=== PATIENT | male | born 1960 | race Caucasian/White ===

== ENCOUNTER → 2019-06-09 14:35 | Outpatient (CLI) | payer BC, SELFPAY ==
--- NOTE | ~2019-06-09 | XR_ITS ---
XR finger 3rd RT min 2V DATE: 06/09/2019 15:02 INDICATION: Fracture of distal phalanx TECHNIQUE: 4 views of third digit COMPARISON: None FINDINGS: There is a transverse fracture of the tuft of the distal phalanx of the third digit without significant displacement or angulation. No other fracture or dislocation of the third digit. IMPRESSION: Transverse virtually nondisplaced fracture of the tuft of the distal phalanx Reviewed, dictated and finalized at location A. IMPRESSION: Transverse virtually nondisplaced fracture of the tuft of the dista l phalanx
== END ==
PROVIDERS: Visit Provider Plastic Surgery
DX: S62.635A Displaced fracture of distal phalanx of left ring finger, initial encounter for closed fracture (principal); X58.XXXA Exposure to other specified factors, initial encounter
CPT/HCPCS: 73140

== ENCOUNTER → 2019-10-20 11:18 | Outpatient (CLI) | payer BC, SELFPAY ==
--- NOTE | ~2019-10-20 | XR_ITS ---
EXAMINATION: XR chest 2V DATE: 10/20/2019 12:10 INDICATION: Cough TECHNIQUE: PA and lateral views of the chest are obtained. COMPARISON: 10/08/2013 FINDINGS: The lungs are free of acute opacities. There is no pleural effusion or pneumothorax. The ca rdiomediastinal silhouette is normal. There is moderate thoracic spondylosis. IMPRESSION: 1. No acute cardiopulmonary abnormality. Reviewed, dictated and finalized at location A.
== END ==
PROVIDERS: PCP Internal Medicine; Visit Provider Internal Medicine
DX: R05 Cough (principal)
CPT/HCPCS: 71046

== ENCOUNTER → 2020-02-09 11:06 | Outpatient (CLI) | payer BC, SELFPAY ==
--- NOTE | ~2020-02-09 | XR_ITS ---
XR wrist LT min 3V DATE: 02/09/2020 11:27 INDICATION: Left wrist and hand pain TECHNIQUE: 4 views of left wrist COMPARISON: None FINDINGS: No fracture or dislocation, periosteal reaction or bone destruction. Joint spaces are prese rved. No erosive change or chondrocalcinosis. IMPRESSION: Negative left wrist Reviewed, dictated and finalized at location A. SH VISITOR IMPRESSION: Negative left wrist
--- NOTE | ~2020-02-09 | XR_ITS ---
XR hand LT min 3V DATE: 02/09/2020 11:27 INDICATION: Left wrist and hand pain TECHNIQUE: 3 views COMPARISON: None FINDINGS: Occasional degenerative ossicles and mild narrowing at some of the interphalangeal joints c onsistent with mild osteoarthritis. No fracture or dislocation, periosteal reaction or bone destruction, erosive change or chondrocalcino sis. IMPRESSION: Mild osteoarthritis Reviewed, dictated and finalized at location A. PMENT LEAD IMPRESSION: Mild osteoarthritis
== END ==
PROVIDERS: PCP Internal Medicine; Visit Provider Internal Medicine
DX: M19.042 Primary osteoarthritis, left hand (principal)
CPT/HCPCS: 73110; 73130

== ENCOUNTER 2020-03-08 07:08 | Outpatient (CLI) | payer BC, SELFPAY ==
[2020-03-08 09:20] LABS: Cholesterol 124 mg/dL (0-200); HDL Direct 31 mg/dL; Triglycerides 204 mg/dL (<150)
[2020-03-08 09:33] LABS: Hemoglobin A1C 9.6 % (<5.7)
[2020-03-08 09:35] LABS: LDL Cholesterol Direct 55 mg/dL
[2020-03-08 09:54] LABS: Prostate Specific Antigen 0.3 ng/mL (< OR = 4.0)
[2020-03-08 10:28] LABS: Creatinine Urine 42.4 mg/dL
[2020-03-08 11:13] LABS: MALB Creatinine Ratio < 14.2 mg/g (0-30); Microalbumin Urine Random < 6.0 mg/L (0-16.7)
[2020-03-11 09:12] LABS: Testosterone Total 412 ng/dL (250-1100)
== END 2020-03-08 07:09 | disposition home or self-care (01) ==
PROVIDERS: PCP Internal Medicine; Visit Provider Internal Medicine
DX: E11.69 Type 2 diabetes mellitus with other specified complication (principal); E78.2 Mixed hyperlipidemia; Z79.899 Other long term (current) drug therapy; Z12.5 Encounter for screening for malignant neoplasm of prostate; E29.1 Testicular hypofunction
CPT/HCPCS: 36415; 80061; 82043; 83036; 84153; 84403; 84443; G0103

== ENCOUNTER 2020-06-15 16:09 | Emergency (ER) | payer BC, SELFPAY ==
--- NOTE | ~2020-06-15 | XR_ITS ---
XR chest 2V DATE: 06/15/2020 17:22 INDICATION: Cough for 1 day. Stents in 2015. TECHNIQUE: PA and lateral views COMPARISON: PA and lateral chest FINDINGS: Normal heart size. There is mild aortic unfolding. No hilar or mediastinal enlargement. N o pulmonary infiltrate or consolidation, pleural effusion or pulmonary vascular congestion or pneumot horax is detected. IMPRESSION: No active cardiopulmonary disease Reviewed, dictated and finalized at location A.
[2020-06-15 16:28] VITALS: BP 137/101; PULSE 67; RESP 28; TEMP 36.9; O2SAT 100
--- NOTE | 2020-06-15 16:39 | ECG_ITS ---
Measurements Intervals [place] Rate: 66 P: 35 OR: 194 QRS: 56 QRSD: 115 T: 44 QT: 401 QTc: 422 Interpretive Statements SINUS RHYTHM WITH SINUS ARRHYTHMIA INCOMPLETE RIGHT BUNDLE BRANCH BLOCK BASELINE ARTIFACT- AVR, V1-V4 BORDERLINE ECG Electronically Signed On 06-15-2020 17:31:45 CDT by Francisco Genao D.O.
[2020-06-15 16:51] LABS: Basophils Percent Auto 0.3 % (0.2-1.2); Eosinophils Percent Auto 0.1 % (0-4.4); Hemoglobin 14.9 g/dL (14.0-18.0); Immature Granulocyte Absolute 0.04 K/mm3 (0.00-0.031); Immature Granulocyte Percent A 0.4 % (0-0.5); Lymphocytes Absolute Auto 1.36 K/mm3 (0.9-3.2); Lymphocytes Percent Auto 12.5 % (18.3-44.2); Mean Corpuscular HGB Conc 33.9 g/dl (32-36); Mean Corpuscular Hemoglobin 30.3 pg (26-34); Mean Corpuscular Volume 89.6 fl (80-100); Mean Platelet Volume 9.2 fl (7.4-10.4); Monocytes Absolute Auto 0.3 K/mm3 (0.1-0.6); Monocytes Percent Auto 2.8 % (2.6-8.5); Neutrophils Absolute Auto 9.2 K/mm3 (1.3-6.7); Neutrophils Percent Auto 83.9 % (45.5-73.1); Platelet Count Result 199 k/mm3 (150-375); Red Blood Count 4.91 M/mm3 (4.6-6.20); Red Cell Distribution Width 12.6 % (11.5-14.5); White Blood Count 10.9 K/mm3 (4.5-10.0)
[2020-06-15 17:02] LABS: Add Urine Microscopic? YES; Appearance Urine Clear (Clear); Bilirubin Urine Negative (Negative); Blood Urine Negative (Negative); Color Urine Yellow (Yellow); Glucose Urine UA 3+ mg/dL (Negative); Ketones Urine Negative (Negative); Leukocyte Esterase Ur Negative LEU/UL (Negative); Mucus Urine Rare /lpf; Nitrate Urine Negative (Negative); Protein Urine Negative (Negative); Urobilinogen Urine Negative mg/dL (<2.0); WBC Urine 0-3 /hpf
[2020-06-15 17:04] LABS: Alanine Aminotransferase 40 U/L (4-50); Albumin Level 4.4 g/dL (3.5-5.1); Alkaline Phosphatase 53 U/L (38-126); Anion Gap 9 mmol/L (8-16); Aspartate Amino Transferase 31 U/L (17-59); Bilirubin,Total 0.6 mg/dL (0.2-1.3); Blood Urea Nitrogen 14 mg/dL (9-20); Calcium 8.3 mg/dL (8.4-10.2); Carbon Dioxide 25 mmol/L (22-30); Chloride 104 mmol/L (98-107); Estimated CRCL calculation 137 ml/min; Estimated Glomerular Filt Rate > 60; Glucose 192 mg/dL (75-110); Potassium 4.3 mmol/L (3.4-5.0); Sodium 138 mmol/L (137-145)
[2020-06-15 17:05] LABS: Specific Grav Ur 1.031 (1.001-1.035)
--- NOTE | 2020-06-15 17:33 | PC.NURSE ---
apprx 20 minutes ago, emsis, less than 100 ml, bile colored; pt. in no acute distress, ambulating around waiting room without difficulty or SOB
--- NOTE | 2020-06-15 18:58 | ED.GENADULT ---
HPI - General Adult General Chief complaint: Unspecified Stated complaint: chills Time Seen by Provider: 06/15/20 18:41 Source: patient Mode of arrival: ambulatory Limitations: no limitations History of Present Illness HPI narrative: Patient is a 60-year-old male who presents complaining of nausea, vomiting x3, sudden onset of chills earlier this afternoon. He reports symptoms have resolved at this time, reports fatigue. He denies chest pain, fever, shortness of breath, numbness or tingling. He reports a history of Covid 10/20. Received Covid vaccine in 05/21. Patient reports history of cardiac stents x2, diabetes and hyperlipidemia. Patient is comfortable at this time, family at bedside. Related Data Home Medications Medication Instructions Recorded Confirmed clopidogrel 75 mg tablet 75 mg PO tablet 02/22/19 04/10/20 aspirin 325 mg tablet 325 mg PO DAILY 07/02/19 04/10/20 coenzyme Q10 100 mg capsule 100 mg PO DAILY 07/02/19 04/10/20 multivitamin 1 tablet PO DAILY 07/02/19 04/10/20 blood-glucose meter #1 ea 03/13/20 04/10/20 Allergies Allergy/AdvReac Type Severity Reaction Status Date / Time metformin AdvReac Unknown Unknown Verified 04/10/20 08:31 Review of Systems Review of Systems: Narrative: CONSTITUTIONAL: Reports chills EYES: Denies visual changes, redness, or discharge. ENT: Denies rhinorrhea, congestion, sore throat, or otalgia. CARDIOVASCULAR: Denies chest pain, palpitations, or edema. RESPIRATORY: Denies cough or dyspnea. GASTROINTESTINAL: Reports nausea and vomiting x3, denies abdominal pain or diarrhea GENITOURINARY: Denies dysuria or hematuria. SKIN: Denies rash or itching. MUSCULOSKELETAL: Denies back pain, joint pain, or myalgia. NEUROLOGIC: Denies headache, numbness, dizziness, or weakness. PSYCHIATRIC: Denies anxiety or depression. [facility] Past Medical History Medical History ASHD (arteriosclerotic heart disease) Body mass index (BMI) 40.0-44.9, adult DM2 (diabetes mellitus, type 2) Early cataract Encounter for routine adult health examination without abnormal findings Encounter for special screening examination for neoplasm of prostate Finger injury Follow up History of 2019 novel coronavirus disease (COVID-19) Hyperlipidemia Hypogonadism in male Left wrist pain On salvage determiner drug therapy Pain, eye, right Sinus drainage Family History Family History Mother Family history of diabetes mellitus in first degree relative Diabetes mellitus Family history of malignant neoplasm of breast in first degree relative Father Family history of heart disease in male family member before age 55 Family history of cardiovascular disease Social History Social History (Updated 06/15/20 @ 19:02 by SUMMER Guardado) Smoking status: Former smoker Smoking end date: 03/03/04 Alcohol intake: current Substance use: never Comments At the time of signature, I have reviewed and agree with nursing past medical, surgical, social, and family history unless otherwise noted. Please see nursing chart for further information. There is no relevant family history pertinent to the presenting complaint. Exam Narrative: Exam Narrative: GENERAL: Well-appearing, well-nourished, and in no acute distress. HEAD: Normocephalic, atraumatic. EYES: EOMI. No redness or drainage. Conjunctiva are normal. ENT: Mucous membranes pink and moist. Nares clear. NECK: AROM. Supple. No lymphadenopathy. CHEST: No respiratory distress. Clear to auscultation. HEART: Regular rate and rhythm. No murmur appreciated. Normal peripheral pulses. GI: Soft, nontender without rebound, or guarding. No distention. Bowel sounds normal in all quadrants. MUSCULOSKELETAL: No bony tenderness. EXTREMITIES: Normal range of motion. No edema. SKIN: Warm, dry, no rash. NEURO: No focal deficits. Alert and oriented x3. Gait steady.
[2020-06-15 19:00] VITALS: BP 135/69; PULSE 63; RESP 18; O2SAT 99
--- NOTE | 2020-06-15 19:37 | PC.NURSE ---
called lab multiple times to add on TROP, Hepatic, and Lipase. Spoke with Grey in the lab. CAlled at 1909 and again at 1938.
[2020-06-15] MEDS: SODIUM CHLORIDE 0.9% IV 1,000 ML 999 ML IV CONT (19:40)
[2020-06-15 20:06] LABS: Alanine Aminotransferase 41 U/L (4-50); Albumin Level 4.3 g/dL (3.5-5.1); Alkaline Phosphatase 55 U/L (38-126); Aspartate Amino Transferase 49 U/L (17-59); Bilirubin,Total 0.5 mg/dL (0.2-1.3); Lipase 102 U/L (23-300)
[2020-06-15 21:11] LABS: Troponin I < 0.012 ng/mL (0.000-0.034)
[2020-06-15 21:27] VITALS: BP 131/65; PULSE 64; RESP 16; TEMP 36.7; O2SAT 100
== END 2020-06-15 21:28 | disposition home or self-care (01) ==
PROVIDERS: Emergency Medicine; Emergency Provider Nurse Practitioner; PCP Internal Medicine
DX: R11.2 Nausea with vomiting, unspecified (principal); Z86.16 Personal history of COVID-19; E11.9 Type 2 diabetes mellitus without complications; E78.5 Hyperlipidemia, unspecified; I25.10 Atherosclerotic heart disease of native coronary artery without angina pectoris; H26.9 Unspecified cataract; Z95.5 Presence of coronary angioplasty implant and graft; Z79.84 Long term (current) use of oral hypoglycemic drugs; Z79.82 Long term (current) use of aspirin; I45.10 Unspecified right bundle-branch block; Z87.891 Personal history of nicotine dependence
CPT/HCPCS: 36415; 71046; 80053; 80076; 81001; 83690; 84484; 85025; 93005; 96360; 96361; 99284; J7030

== ENCOUNTER 2021-01-02 00:11 | Day surgery (SDC) | payer BC, SELFPAY ==
[2020-12-19 12:03] VITALS: BMI 42.7
[2021-01-02 06:27] VITALS: BP 114/74; PULSE 54; RESP 20; TEMP 36.1; O2SAT 97
[2021-01-02] MEDS: LACTATED RINGERS 1,000 ML 150 ML IV CONT (06:39)
--- NOTE | 2021-01-02 07:16 | WPDANESEPPF ---
Anes - Initial Pre Proc Eval Procedure: Operation Date: 01/02/21 07:30 Proposed Procedures p Screening Colonoscopy - Scar Perez MD Date/Time: 01/02/21 07:16 Surgeon: Scar Perez MD Pre Op Diagnosis: hx of colon polyps Patient Data Age: 60 Gender: M Height: 1.83 m Weight: 134.1 kg Last Vital Signs Temp 36.1 C L 01/02/21 06:27 Pulse 54 L 01/02/21 06:27 Resp 20 01/02/21 06:27 BP 114/74 01/02/21 06:27 Pulse Ox 97 01/02/21 06:27 Allergies Allergy/AdvReac Type Severity Reaction Status Date / Time metformin AdvReac Unknown Unknown Verified 01/02/21 06:26 Home Medications Medication Instructions Recorded Confirmed Type clopidogrel 75 mg tablet 75 mg PO DAILY tablet 02/22/19 12/19/20 History coenzyme Q10 100 mg capsule 100 mg PO DAILY 07/02/19 12/19/20 History multivitamin 1 tablet PO DAILY 07/02/19 12/19/20 History blood-glucose meter #1 ea 03/13/20 10/25/20 History FreeStyle Pro 14 Day [place] #1 ea NS 04/10/20 10/25/20 Rx rosuvastatin 40 mg tablet See Rx Instructions .ROUTE 04/13/20 12/19/20 Rx .COMPLEX #90 tablet empagliflozin 25 mg-linagliptin 5 See Rx Instructions .ROUTE 05/15/20 12/19/20 Rx mg tablet .COMPLEX #90 tablet Vascepa 1 gram capsule See Rx Instructions .ROUTE 06/08/20 12/19/20 Rx .COMPLEX #360 cap NS losartan 50 mg tablet See Rx Instructions .ROUTE 06/14/20 12/19/20 Rx .COMPLEX #90 tablet AndroGel 20.25 mg/1.25 gram (1.62 2 pump TOPICAL DAILY #225 g NS 07/11/20 12/19/20 Rx %) transdermal gel pump FreeStyle Pro 14 Day Sensor #1 ea NS 10/13/20 10/25/20 Rx aspirin 81 mg tablet,delayed 81 mg PO DAILY 10/24/20 12/19/20 History release ezetimibe 10 mg tablet See Rx Instructions .ROUTE 11/24/20 12/19/20 Rx .COMPLEX #90 tablet glimepiride 2 mg tablet See Rx Instructions .ROUTE 12/18/20 12/19/20 Rx .COMPLEX #90 tablet Vitamin D2 12/19/20 History azelastine 2 spray INTRANASAL BID PRN 12/19/20 12/19/20 History semaglutide See Rx Instructions .ROUTE 12/28/20 Rx .COMPLEX #1.5 ml Patient hx anesthesia problems: none Family hx anesthesia problems: none Results Review: All pre-operative results and documents have been reviewed as part of the pre-operative evaluation. 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 Pain, eye, right Sinus drainage Stress Family History Family History Mother Family history of diabetes mellitus in first degree relative Diabetes mellitus Family history of malignant neoplasm of breast in first degree relative Father Family history of heart disease in male family member before age 55 Family history of cardiovascular disease Social History Social History Years smoked: 20 Smoking status: Former smoker Tobacco type: cigarettes and cigars Smoking end date: 03/03/04 Alcohol intake: current Drinks per week: 5 Substance use: never Anes - Eval Final PreProcedure Day of Procedure 01/02/21 07:16 Patient weight: morbidly obese Heart: regular rate and rhythm Lungs: clear to auscultation and normal air movement Airway: Mallampati scale class II Neurological: alert and oriented Last oral intake: >/= 8 hours ASA classification: III Emergent: no Anesthetic plan: proceed Anesthesia type and monitoring: general GIVS Results Review: All pre-operative results and documents have been reviewed as part of the pre-operative ev
--- NOTE | 2021-01-02 07:31 | WPDGICN ---
Assessment and Plan Assessment and plan (1) History of colon polyps: Code(s): Z86.010 - Personal history of colonic polyps Status: Acute Assessment and Plan: Patient has a prior history of colon polyps by colonoscopy 2016. Plan is for surveillance colonoscopy now and may need to be considered intervals in the future. Further recommendations will be given after endoscopy. GI Consult Note Consult date/time: 01/02/21 07:31 HPI: Roberto Morocho is a 60 year old male Presents for screening colonoscopy. Patient has a history of colon polyps. Most recent colonoscopy 2016. Patient states that his current weight appetite bowel movements are normal. Patient denies abdominal pain. He has had no bleeding. Family history is noncontributory. Review of Systems Review of Systems: All systems reviewed & are unremarkable except as noted in HPI and below [facility] Past Medical History Medical History (Updated 10/24/20 @ 08:57 by Emily Wilson CMA) ASHD (arteriosclerotic heart disease) Body mass index (BMI) 40.0-44.9, adult DM2 (diabetes mellitus, type 2) Early cataract Encounter for routine adult health examination without abnormal findings Encounter for special screening examination for neoplasm of prostate Finger injury Follow up History of 2019 novel coronavirus disease (COVID-19) Hyperlipidemia Hypogonadism in male Left wrist pain On intermediate drug therapy Pain, eye, right Sinus drainage Stress Family History Family History Mother Family history of diabetes mellitus in first degree relative Diabetes mellitus Family history of malignant neoplasm of breast in first degree relative Father Family history of heart disease in male family member before age 55 Family history of cardiovascular disease Social History Social History Years smoked: 20 Smoking status: Former smoker Tobacco type: cigarettes and cigars Smoking end date: 03/03/04 Alcohol intake: current Drinks per week: 5 Substance use: never Meds Home Medications and Allergies Home Medications Medication Instructions Recorded Confirmed Type clopidogrel 75 mg tablet 75 mg PO DAILY tablet 02/22/19 12/19/20 History coenzyme Q10 100 mg capsule 100 mg PO DAILY 07/02/19 12/19/20 History multivitamin 1 tablet PO DAILY 07/02/19 12/19/20 History blood-glucose meter #1 ea 03/13/20 10/25/20 History FreeStyle Pro 14 Day [facility] #1 ea NS 04/10/20 10/25/20 Rx rosuvastatin 40 mg tablet See Rx Instructions .ROUTE 04/13/20 12/19/20 Rx .COMPLEX #90 tablet empagliflozin 25 mg-linagliptin 5 See Rx Instructions .ROUTE 05/15/20 12/19/20 Rx mg tablet .COMPLEX #90 tablet Vascepa 1 gram capsule See Rx Instructions .ROUTE 06/08/20 12/19/20 Rx .COMPLEX #360 cap NS losartan 50 mg tablet See Rx Instructions .ROUTE 06/14/20 12/19/20 Rx .COMPLEX #90 tablet AndroGel 20.25 mg/1.25 gram (1.62 2 pump TOPICAL DAILY #225 g NS 07/11/20 12/19/20 Rx %) transdermal gel pump FreeStyle Pro 14 Day Sensor #1 ea NS 10/13/20 10/25/20 Rx aspirin 81 mg tablet,delayed 81 mg PO DAILY 10/24/20 12/19/20 History release ezetimibe 10 mg tablet See Rx Instructions .ROUTE 11/24/20 12/19/20 Rx .COMPLEX #90 tablet glimepiride 2 mg tablet See Rx Instructions .ROUTE 12/18/20 12/19/20 Rx .COMPLEX #90 tablet Vitamin D2 12/19/20 History azelastine 2 spray INTRANASAL BID PRN 12/19/20 12/19/20 History semaglutide See Rx Instructions .ROUTE 12/28/20 Rx .COMPLEX #1.5 ml Allergies Allergy/AdvReac Type Severity Reaction Status Date / Time metformin AdvReac Unknown Unknown Verified 01/02/21 06:26 Vital Signs Vital Signs - 24 hr 01/02/21 06:27 Temperature 97 F L Pulse Rate 54 L Respiratory Rate 20 Blood Pressure 114/74 Pulse Oximetry 97 Exam Narrative: Physical exam reveals patient to be alert. Vital signs are
[2021-01-02 07:47] VITALS: BP 124/78; PULSE 54; RESP 18; O2SAT 97
[2021-01-02 07:57] VITALS: BP 117/63; PULSE 52; RESP 16; O2SAT 98
[2021-01-02 08:07] VITALS: BP 120/87; PULSE 46; RESP 20; O2SAT 99
== END 2021-01-02 08:19 | disposition home or self-care (01) ==
PROVIDERS: PCP Internal Medicine; Visit Provider Internal Medicine Gastroenterology
PROC: 0DJD8ZZ Inspection of Lower Intestinal Tract, Via Natural or Artificial Opening Endoscopic (ICD-10-PCS; CPT 45378; principal; 2021-01-02 07:30)
DX: Z12.11 Encounter for screening for malignant neoplasm of colon (principal); D12.2 Benign neoplasm of ascending colon; I25.10 Atherosclerotic heart disease of native coronary artery without angina pectoris; E11.9 Type 2 diabetes mellitus without complications; Z86.16 Personal history of COVID-19; E78.5 Hyperlipidemia, unspecified; Z87.891 Personal history of nicotine dependence; Z79.82 Long term (current) use of aspirin; E66.01 Morbid (severe) obesity due to excess calories; Z68.41 Body mass index [BMI] 40.0-44.9, adult
CPT/HCPCS: 45385; 88305; J7120

== ENCOUNTER 2022-02-12 09:02 | Outpatient (CLI) | payer BC, SELFPAY ==
--- NOTE | ~2022-02-12 | XR_ITS ---
Clinical Indication: Chest pain PA and lateral views of the chest: Comparison: 06/15/2020 Findings: The lungs are clear, without evidence of focal consolidation or pleural effusion. Cardiome diastinal silhouette is within normal limits. Bones and soft tissues are unremarkable. Impression: Normal chest. 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
[2022-02-12 10:23] LABS: Basophils Percent Auto 0.4 % (0.2-1.2); Eosinophils Percent Auto 0.4 % (0-4.4); Hematocrit 46.1 % (42.0-52.0); Hemoglobin 15.5 g/dL (14.0-18.0); Immature Granulocyte Absolute 0.03 K/mm3 (0.00-0.031); Immature Granulocyte Percent A 0.5 % (0-0.5); Lymphocytes Absolute Auto 0.83 K/mm3 (0.9-3.2); Lymphocytes Percent Auto 14.8 % (18.3-44.2); Mean Corpuscular HGB Conc 33.6 g/dl (32-36); Mean Corpuscular Volume 92.2 fl (80-100); Mean Platelet Volume 9.8 fl (7.4-10.4); Monocytes Absolute Auto 0.8 K/mm3 (0.1-0.6); Monocytes Percent Auto 14.6 % (2.6-8.5); Neutrophils Absolute Auto 3.9 K/mm3 (1.3-6.7); Neutrophils Percent Auto 69.3 % (45.5-73.1); Platelet Count Result 173 k/mm3 (150-375); Red Cell Distribution Width 12.8 % (11.5-14.5); White Blood Count 5.6 K/mm3 (4.5-10.0)
== END 2022-02-12 09:03 | disposition home or self-care (01) ==
PROVIDERS: PCP Internal Medicine; Visit Provider Internal Medicine
DX: R05.9 Cough, unspecified (principal); R07.89 Other chest pain
CPT/HCPCS: 36415; 71046; 85025

== ENCOUNTER 2022-08-12 09:20 | Day surgery (SDC) | payer BC, SELFPAY ==
[2022-08-12 10:04] VITALS: BMI 39.6
--- NOTE | 2022-08-12 10:22 | PC.NURSE ---
Report to the Outpatient Waiting Room, entrance under the green pavilion located off [facility], at time ___1200____ on date __08/12/22 . Planned Procedure Time: __1400 . Time changes happen often and if your time is changed the preop area will call you the afternoon before. - You and your visitor will be asked to self-screen and do not enter if you have any COVID symptoms. - A mask is optional within the hospital at this time. Patients may have clear liquids (water, carbonated beverages, clear teas, apple juice) until 3 hours prior to surgery with a maximum of 20 ounces. - No food from midnight until time of surgery - Infants may have breast milk until 4 hours before surgery, infant formula 6 hours prior to surgery. - Children will be allowed to drink immediately following surgery. If applicable, please bring a bottle or sippy cup to assist with drinking. Juice, water, soda, and popsicles are readily available. For infants on formula, please bring formula the day of surgery. Pacifiers are allowed. Take the following medications with a SIP of water the morning of surgery: __pt at dr walker's office this am .pt states all morning meds already taken DO NOT STOP ANY OF YOUR OTHER PRESCRIPTION MEDICATIONS PRIOR TO SURGERY ?EXCEPT THE FOLLOWING Medications to discontinue per physician Date to take last dose Please no make-up, nail iraqi, hairspray, perfume, deodorant, or body powder the day of surgery. No jewelry (including any body piercings) or valuables the day of surgery, leave them at home. Please take a shower or bath the night before, or the morning of, surgery with an antibacterial soap. Wear comfortable, loose fitting clothing. Children are encouraged to wear pajamas. - Jewelry must be removed prior to entering the operating room. Rings and piercings that are not removed may be cut off. - The hospital will not accept responsibility for valuables. - Please leave all valuables, including medications, at home the day of surgery. If you are going home after surgery, a licensed pickup driver must drive you home. - NO public transportation without another adult if you receive anesthesia. - We recommend that an adult stay with you for 24 hours following discharge. - We also recommend that you do not drive, make important decision, drink alcoholic beverages, or take any drugs that were not prescribed by your health care provider for at least 24 hours after your discharge time. For Pediatric surgeries, we recommend two adults accompany the child home. Follow any additional instructions given to you from your surgeon. If you or anyone in your household have experienced Covid symptoms in the past week, please notify your surgeon or the nurse liaison at the phone number below for possible testing. Telephone instructions given to __patient and asked if any additional questions and then verbalized understanding. Patient advised to call surgeon office or pre surgery nurse liaison [phone] if any additional questions.
[2022-08-12 12:32] VITALS: BP 129/81; PULSE 55; RESP 18; TEMP 36.1; O2SAT 100
--- NOTE | 2022-08-12 12:34 | ECG_ITS ---
Measurements Intervals [place] Rate: 49 P: 47 DE: 215 QRS: 47 QRSD: 124 T: 41 QT: 454 QTc: 412 Interpretive Statements SINUS BRADYCARDIA WITH FIRST DEGREE AV BLOCK WITH OCCASIONAL SUPRAVENTRICULAR PREMATURE COMPLEXES RIGHT BUNDLE-BRANCH BLOCK ABNORMAL ECG COMPARED TO ECG 06/15/2020 16:43:03 SINUS BRADYCARDIA NOW PRESENT FIRST DEGREE AV BLOCK NOW PRESENT RIGHT BUNDLE-BRANCH BLOCK IS NOW PRESENT Electronically Signed On 08-12-2022 17:14:12 CDT by Kaleb Davis M.D.
--- NOTE | 2022-08-12 12:47 | WPDANESEPPF ---
Anes - Initial Pre Proc Eval Procedure: Operation Date: 08/12/22 14:00 Proposed Procedures p Incision and Debridement Left Buttock Abscess - Caden Gaona MD Date/Time: 08/12/22 12:47 Surgeon: Caden Gaona MD Pre Op Diagnosis: buttock abscess Patient Data Age: 62 Gender: M Height: 1.83 m Weight: 132.45 kg Allergies Allergy/AdvReac Type Severity Reaction Status Date / Time metformin AdvReac Unknown Gastrointestinal Verified 08/12/22 12:33 Upset Home Medications Medication Instructions Recorded Confirmed Type clopidogrel 75 mg tablet 75 mg PO DAILY 02/22/19 08/12/22 History coenzyme Q10 100 mg capsule 100 mg PO DAILY 07/02/19 08/12/22 History (CoQ-10) multivitamin 1 tablet PO DAILY 07/02/19 08/12/22 History blood-glucose meter #1 ea 03/13/20 08/09/22 History FreeStyle Pro 14 Day [place] #1 ea 04/10/20 08/09/22 Rx (flash glucose scanning reader) aspirin 81 mg tablet,delayed 81 mg PO DAILY 10/24/20 08/12/22 History release (Adult Low Dose Aspirin) azelastine 205.5 mcg (0.15 %) 2 spray intranasal BID PRN 12/19/20 08/12/22 History nasal spray allergies glimepiride 2 mg tablet 2 mg .Route BID #180 tabs 03/18/22 08/12/22 Rx empagliflozin 25 mg-linagliptin 5 See Rx Instructions .Route 06/12/22 08/12/22 Rx mg tablet (Glyxambi) .COMPLEX #90 tabs FreeStyle Pro 14 Day Sensor #2 ea 06/18/22 08/09/22 Rx (flash glucose sensor) testosterone 2 pump topical DAILY #225 grams 07/03/22 08/12/22 Rx Pre/probiotic 1 tablet BYMOUTH DAILY 07/18/22 08/12/22 History losartan 50 mg tablet See Rx Instructions .Route 07/25/22 08/12/22 Rx .COMPLEX #90 tabs ezetimibe 10 mg tablet See Rx Instructions .Route 07/30/22 08/12/22 Rx .COMPLEX #90 tabs Ozempic 2 mg/dose (8 mg/3 mL) See Rx Instructions .Route 08/02/22 08/12/22 Rx subcutaneous pen injector .COMPLEX #9 mL (semaglutide) cholestyramine-aspartame 4 gram 4 g PO DAILY #240.156 grams 08/06/22 08/12/22 Rx oral powder (Cholestyramine Light) ciclopirox 8 % topical solution 1 applic topical QHS 4 weeks #6.6 08/06/22 08/12/22 Rx mL rosuvastatin 40 mg tablet See Rx Instructions .Route 08/07/22 08/12/22 Rx .COMPLEX #90 tabs doxycycline hyclate 100 mg tablet 100 mg PO BID #15 tabs 08/08/22 08/12/22 Rx icosapent ethyl 1 gram capsule See Rx Instructions .Route 08/08/22 08/12/22 Rx (Vascepa) .COMPLEX #360 caps acetaminophen 325 mg tablet 325 mg PO PRN PRN Pain 08/12/22 08/12/22 History (Tylenol) cholecalciferol (vitamin D3) 25 25 mcg PO DAILY 08/12/22 08/12/22 History mcg (1,000 unit) tablet Patient hx anesthesia problems: none Family hx anesthesia problems: none Results Review: All pre-operative results and documents have been reviewed as part of the pre-operative evaluation. [facility] Past Medical History Medical History ASHD (arteriosclerotic heart disease) BMI 39.0-39.9,adult Body mass index (BMI) 40.0-44.9, adult Cyst DM2 (diabetes mellitus, type 2) Early cataract Encounter for preventive health examination Encounter for routine adult health examination without abnormal findings Finger injury History of 2019 novel coronavirus disease (COVID-19) Hyperlipidemia Hypogonadism in male Left wrist pain On longterm drug therapy Onychomycosis Pain, eye, right Prostate cancer screening Seasonal allergies Sinus drainage Stress Family History Family History Mother Family history of diabetes mellitus in first degree relative Diabetes mellitus Family history of malignant neoplasm of breast in first degree relative Father Family history of heart disease in male family member before age 55 Family history of cardiovascular disease Social History Social History Years smoked: 20 Smoking status: Former smoker (quit years ago) Tobacco type: ciga
[2022-08-12] MEDS: LACTATED RINGERS 1,000 ML 30 ML IV CONT (13:07)
[2022-08-12 13:13] LABS: Glucose Point of Care 95 mg/dl (65-105)
--- NOTE | 2022-08-12 13:49 | WPDHPUPDATE1 ---
History and Physical Update Update Date/Time: 08/12/22 13:49 History and Physical has been reviewed, including an updated exam of the patient. There are NO changes in the patient's condition. Risks, benefits, and alternatives have been discussed and questions answered. Patient agrees to proceed with procedure.
[2022-08-12] MEDS: ceFAZolin 3 GM/D5W 100 ML 100 ML IVPB (14:04)
--- NOTE | 2022-08-12 14:44 | W.PM.PROC2 ---
Procedure Note - Detailed Date of Procedure 08/12/22 Pre-op Diagnosis Left buttock abscess, infected inclusion cyst Post-op Diagnosis Same Procedure Performed Incision and drainage left buttocks abscess Surgeon Caden Gaona MD Radio Reporter [place]up[place] [facility] Anesthesia General and Local (0.5% Marcaine with epinephrine) Indications Patient has been seen in the office earlier today with a tender red and nodule in the left upper buttocks near the coccyx. This has been sore swollen and tender for about a week. He was started on doxycycline by his primary care physician but this has not really improved. He is taken to surgery now for incision and drainage of a left buttocks abscess. It appears this is a an infected epithelial inclusion cyst. Findings Abscess associated with inclusion cyst Description of Procedure Patient was taken to surgery and induced into general endotracheal anesthesia. He was then placed in a prone position. The buttocks were taped apart. Prep and drape was carried out. Stab incision was made over the fluctuant area of the abscess. Purulent fluid came forth. This opening was enlarged and with gentle pressure a large amount of inclusion cyst material and purulent fluid came forth. We then broke up loculations in the abscess. The abscess was irrigated to remove any free material or debris. The abscess was then packed with half-inch iodoform Nu Gauze. Patient is on Plavix but there was no significant bleeding at all. Bulky gauze dressing was placed. Patient was returned to a supine position, awakened and taken to recovery in good condition. Sponge needle counts were correct x2. Estimated Blood Loss -5 Drains No Packing Yes (1/2 inch iodoform Nu Gauze) Pathology Other (G stain, culture, and sensitivity) Complications No immediate complications Condition Stable Disposition PACU [facility] Billing Surgery - Charge Forward: Surgery Billing (Incision and drainage complex left buttocks abscess)
[2022-08-12] MEDS: BUPIVACAINE/EPINEPHRINE 0.5% 50 ML VIAL 10 ML INFILTRATE (14:57)
[2022-08-12 14:58] VITALS: BP 144/82; PULSE 69; RESP 11; TEMP 36.5; O2SAT 100
[2022-08-12 15:13] VITALS: BP 134/88; PULSE 58; RESP 15; O2SAT 100
[2022-08-12 15:15] LABS: Glucose Point of Care 120 mg/dl (65-105)
[2022-08-12 15:28] VITALS: BP 124/65; PULSE 59; RESP 14; O2SAT 97
[2022-08-12 15:45] VITALS: BP 146/97; PULSE 72; RESP 18
[2022-08-12 16:15] VITALS: BP 151/80; PULSE 62; RESP 18
== END 2022-08-12 16:22 | disposition home or self-care (01) ==
PROVIDERS: PCP Internal Medicine; Visit Provider Surgery
PROC: (CPT 10060; principal; 2022-08-12 14:00)
DX: L02.31 Cutaneous abscess of buttock (principal); I25.10 Atherosclerotic heart disease of native coronary artery without angina pectoris; E11.9 Type 2 diabetes mellitus without complications; E78.5 Hyperlipidemia, unspecified; Z87.891 Personal history of nicotine dependence; E66.01 Morbid (severe) obesity due to excess calories; Z68.39 Body mass index [BMI] 39.0-39.9, adult; Z79.02 Long term (current) use of antithrombotics/antiplatelets; Z79.82 Long term (current) use of aspirin; Z79.84 Long term (current) use of oral hypoglycemic drugs; Z79.899 Other long term (current) drug therapy
CPT/HCPCS: 10060; 82948; 87070; 87075; 87205; 93005; J0330; J0690; J1100; J2250; J2405; J2704; J3010; J7120

== ENCOUNTER 2023-10-27 09:20 | Outpatient (CLI) | payer BC, SELFPAY ==
--- NOTE | ~2023-10-27 | XR_ITS ---
EXAMINATION: XR abdomen/kub 1V DATE: 10/27/2023 09:39 INDICATION: Constipation and diarrhea. TECHNIQUE: A supine view of the abdomen on 3 radiographs was obtained. COMPARISON: None. FINDINGS: There are no dilated loops of bowel. There is a small volume of stool in the colon. There i s a phlebolith in left pelvis. There are changes of anterior and posterior fusion procedures in lumbo sacral spine. IMPRESSION: 1. Normal bowel gas pattern. Reviewed, dictated and finalized at location A.
== END 2023-10-27 09:21 | disposition home or self-care (01) ==
LOC: ANHIMG 09:23
PROVIDERS: PCP Internal Medicine; Visit Provider Nurse Practitioner Family
DX: R19.5 Other fecal abnormalities (principal); R19.8 Other specified symptoms and signs involving the digestive system and abdomen
CPT/HCPCS: 74018

== ENCOUNTER 2023-11-25 12:09 | Emergency (ER) | payer BC, SELFPAY ==
[2023-11-25] VITALS (8 sets, daily range): BP systolic 132–146; BP diastolic 71–83; PULSE 43–57; RESP 13–18; TEMP 36.6; O2SAT 96–100
--- NOTE | ~2023-11-25 | CT_ITS ---
CTA chest abdomen pelvis Ordering provider: Salvador Varma MD History: . 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 Comparison: None. Technique: CT angiogram chest, abdomen and pelvis was performed following timed intravenous injection of contrast. Thin slice axial images and reformatted coronal images were obtained. Three dimensional reformatted images of the chest were also obtained using a [employer] workstation. Radiation reduction t echnique utilized. The dose-length product was 1897.56 mGy-cm. 100 mL Omnipaque 350 was given IV. FINDINGS: CHEST: --THORACIC AORTA: Mild atheromatous disease. No aneurysm, dissection or mediastinal hematoma. --GREAT VESSELS: Normal as visualized. --PULMONARY ARTERIES: No pulmonary embolus. --VISUALIZED THORACIC INLET: Normal. --MEDIASTINUM: Coronary arteries: Mild atheromatous disease. Heart/other: The heart is not enlarged. Lymph nodes: No mediastinal or hilar adenopathy. Small mediastinal lymph nodes. --LUNGS: No pulmonary nodules or masses. No infiltrates or effusions. No pneumothorax. --MUSCULOSKELETAL: Superficial soft tissues: The superficial soft tissues are normal. Bones: Age appropriate degenerative changes of the spine. ABDOMEN/PELVIS: --MUSCULOSKELETAL: Bones: Age appropriate degenerative changes of the spine. Postoperative changes in the lumbosacral ar ea. Superficial soft tissues: The superficial soft tissues are normal. --UPPER ABDOMINAL ORGANS: Liver: Hepatomegaly. Gallbladder: Normal. Spleen: Normal. Stomach/duodenum: Normal. Pancreas: Normal. Adrenals: Normal. Kidneys: Normal. --PELVIC ORGANS: The bladder is normal. No bladder stones. --BOWEL AND MESENTERY: Colon: No evidence of diverticulitis. Normal appendix. Small Bowel: Normal. No obstruction. Peritoneum/mesentery: No free air or free fluid. No mesenteric lymphadenopathy. --RETROPERITONEUM: No retroperitoneal lymphadenopathy. --ARTERIES: ABDOMINAL AORTA: Mild atheromatous disease. No aneursym or dissection. RENAL ARTERIES: Normal. CELIAC AXIS: Normal. SMA: Normal. KAMLESH: Normal. ILIAC AND VISUALIZED FEMORAL ARTERIES: Mild atherosclerotic changes. MESENTERIC ARTERIES: Normal. IMPRESSION: CHEST: 1. No acute cardiopulmonary pathology. 2. No evidence of pulmonary embolism or dissection. ABDOMEN/PELVIS: 1. Slight hepatomegaly. 2. No acute abdominal process with no evidence of appendicitis, diverticulitis or intestinal obstruc tion. 3. No evidence of aneurysm or dissection seen in the abdominal aorta. Minimal atherosclerotic change s are seen. Reviewed, dictated and finalized at location A. IMPRESSION: CHEST: 1. No acute cardiopulmonary pathology. 2. No evidence of pulmonary embolism or dissection. ABDOMEN/PELVIS: 1. Slight hepatomegaly. 2. No acute abdominal process with no evidence of appendicitis, diverticulitis or intestinal obstruction. 3. No evidence of aneurysm or dissection seen in the abdominal aorta. Minimal atherosclerotic changes are seen.
--- NOTE | ~2023-11-25 | XR_ITS ---
XR chest 2V Ordering provider: Pritesh Gray MD History: 63 years Male with . CP AND PRESSURE TODAY, HX STENT X 10+ YEARS AGO . Comparison: February 12, 2022 FINDINGS: MEDIASTINUM: The cardiac silhouette is not enlarged. LUNGS: No infiltrates, effusions or pneumothorax. OTHER: No free air under the diaphragm. Degenerative changes of the spine. IMPRESSION: No acute cardiopulmonary pathology. Reviewed, dictated and finalized at location A.
--- NOTE | 2023-11-25 12:11 | ECG_ITS ---
Test Date: 2023-11-25 12:14:49 Measurements Intervals [place] Rate: 51 P: 60 MI: 228 QRS: 45 QRSD: 114 T: 35 QT: 427 QTc: 395 Interpretive Statements SINUS BRADYCARDIA WITH FIRST DEGREE AV BLOCK WITH OCCASIONAL SUPRAVENTRICULAR PREMATURE COMPLEXES INCOMPLETE RIGHT BUNDLE BRANCH BLOCK T WAVE ABNORMALITY IN ANTERIOR LEADS- CONSIDER ISCHEMIA BASELINE ARTIFACT- I, II, III, AVR, AVL, AVF, V1-V6 ABNORMAL ECG No previous ECG available for comparison Electronically Signed On 11-25-2023 12:43:52 CDT by Francisco Genao D.O.
[2023-11-25 12:34] LABS: Basophils Percent Auto 0.3 % (0.2-1.2); Eosinophils Percent Auto 0.7 % (0-4.4); Hematocrit 45.2 % (42.0-52.0); Hemoglobin 15.8 g/dL (14.0-18.0); Immature Granulocyte Absolute 0.02 K/mm3 (0.00-0.031); Immature Granulocyte Percent A 0.3 % (0-0.5); Lymphocytes Absolute Auto 2.08 K/mm3 (0.9-3.2); Lymphocytes Percent Auto 35.3 % (18.3-44.2); Mean Corpuscular Hemoglobin 31.6 pg (26-34); Mean Corpuscular Volume 90.4 fl (80-100); Mean Platelet Volume 9.6 fl (7.4-10.4); Monocytes Absolute Auto 0.4 K/mm3 (0.1-0.6); Monocytes Percent Auto 7.1 % (2.6-8.5); Neutrophils Absolute Auto 3.3 K/mm3 (1.3-6.7); Neutrophils Percent Auto 56.3 % (45.5-73.1); Platelet Count Result 191 k/mm3 (150-375); Red Cell Distribution Width 12.5 % (11.5-14.5); White Blood Count 5.9 K/mm3 (4.5-10.0)
[2023-11-25 12:46] LABS: Alanine Aminotransferase 35 U/L (6-50); Albumin Level 4.9 g/dL (3.5-5.1); Alkaline Phosphatase 58 U/L (38-126); Anion Gap 11 mmol/L (4-12); Aspartate Amino Transferase 27 U/L (17-59); Bilirubin,Total 0.7 mg/dL (0.2-1.3); Blood Urea Nitrogen 15 mg/dL (9-20); Calcium 9.5 mg/dL (8.4-10.2); Carbon Dioxide 26 mmol/L (22-30); Chloride 100 mmol/L (98-107); Estimated CRCL calculation 128 ml/min; Estimated Glomerular Filt Rate > 60; Glucose 196 mg/dL (65-110); Lipase 174 U/L (23-300); Potassium 4.2 mmol/L (3.4-5.0); Sodium 137 mmol/L (137-145)
[2023-11-25 12:56] LABS: Troponin I < 0.012 ng/mL (0.000-0.034)
[2023-11-25] MEDS: ASPIRIN 81 MG CHEWABLE TABLET 324 MG PO (14:08)
[2023-11-25 14:40] LABS: INR 0.8; Partial Thromboplastin Time 24.7 Seconds (22.3-36.8)
--- NOTE | 2023-11-25 15:05 | ECG_ITS ---
Test Date: 2023-11-25 15:11:27 Measurements Intervals [place] Rate: 46 P: 47 [place]: 246 QRS: 67 QRSD: 120 T: 61 QT: 454 QTc: 401 Interpretive Statements SINUS BRADYCARDIA WITH FIRST DEGREE AV BLOCK INCOMPLETE RIGHT BUNDLE BRANCH BLOCK T WAVE ABNORMALITY IN ANTERIOR LEADS- CONSIDER ISCHEMIA BASELINE ARTIFACT- I, II, AVR, AVL ABNORMAL ECG Compared to ECG 11/25/2023 12:14:49 HEART RATE HAS DECREASED Electronically Signed On 11-25-2023 15:31:41 CDT by Francisco Genao D.O.
[2023-11-25] MEDS: LACTATED RINGERS 1,000 ML 999 ML IV CONT (15:09)
[2023-11-25 15:42] LABS: Troponin I < 0.012 ng/mL (0.000-0.034)
--- NOTE | 2023-11-25 17:44 | ED.DIZZY ---
HPI - Dizziness General Chief Complaint: Dizziness Stated Complaint: dizzy Time Seen by Provider: 11/25/23 14:09 History of Present Illness HPI Narrative: 63-year-old male with a past medical history significant for coronary disease with a stent, hypertension, diabetes. He presents today with a chief complaint of intermittent dizziness sensation with the chest heaviness. He states that his been going on intermittently but mostly started this morning. No ongoing chest pain or difficulty breathing in the chest pressure sensation has since stopped prior to his arrival to the ED. He describes the dizziness as a feel like he might pass out and not more like a room spinning or dizziness with a intoxication sensation. Denies any headache or vision changes associated with this. He was recently up titrated on 1 of his medications but he is not sure the name of it. He thinks it was for his diabetes. This occurred this week coinciding with the last few days with his symptoms. Presently he states that he is not having any chest pain, shortness a breath, nausea, vomiting, headache, vision change, abdominal pain, back pain, fever, chills. At rest he has no complaints. No clear association with exertion. Related Data Home Medications Medication Instructions Recorded Confirmed clopidogrel 75 mg tablet 75 mg PO DAILY 02/22/19 11/20/23 coenzyme Q10 100 mg capsule 100 mg PO DAILY 07/02/19 11/20/23 (CoQ-10) multivitamin 1 tablet PO DAILY 07/02/19 11/20/23 blood-glucose meter #1 ea 03/13/20 11/20/23 aspirin 81 mg tablet,delayed 81 mg PO DAILY 10/24/20 11/20/23 release (Adult Low Dose Aspirin) Pre/probiotic 1 tablet BYMOUTH DAILY 07/18/22 11/20/23 cholecalciferol (vitamin D3) 25 25 mcg PO DAILY 08/12/22 11/20/23 mcg (1,000 unit) tablet psyllium husk 0.4 gram capsule 0.4 g PO DAILY 11/19/23 11/20/23 (Metamucil) Allergies Allergy/AdvReac Type Severity Reaction Status Date / Time metformin AdvReac Unknown Gastrointestinal Verified 11/19/23 07:31 Upset Review of Systems Review of Systems: As reviewed above in HPI [facility] Past Medical History Medical History ASHD (arteriosclerotic heart disease) Benign essential hypertension BMI 38.0-38.9,adult BMI 39.0-39.9,adult Body mass index (BMI) 40.0-44.9, adult Change in bowel movement Cyst DM2 (diabetes mellitus, type 2) Early cataract Encounter for preventive health examination Encounter for routine adult health examination without abnormal findings Finger injury History of 2019 novel coronavirus disease (COVID-19) Hyperlipidemia Hypogonadism in male Infected inclusion cyst Left wrist pain Loose stools On joint terminal attack controller drug therapy Onychomycosis Pain, eye, right Prostate cancer screening Seasonal allergies Sinus drainage Stress Surgical History Surgical History History of drainage of abscess 08/12/2022 - Incision and drainage left buttocks abscess Family History Family History Mother Family history of diabetes mellitus in first degree relative Diabetes mellitus Family history of malignant neoplasm of breast in first degree relative Father Family history of heart disease in male family member before age 55 Family history of cardiovascular disease Social History Social History Years smoked: 20 Smoking status: Former smoker (quit years ago) Tobacco type: cigars Smoking end date: 03/03/02 Additional smoking assessment comments: SMOKED CIGARS X 20 YEARS Alcohol intake: current Drinks per week: 5 Substance use: never Substance use type: does not use Lack of Transportation: No Lack of Food: Never True Current Housing: I Have Housing Concerned About Future Housing: No Difficulty Paying Gas/Electri
== END 2023-11-25 18:02 | disposition home or self-care (01) ==
PROVIDERS: Emergency Medicine; Emergency Provider Student in an Organized Health Care Education/Training Program; PCP Internal Medicine
DX: R55 Syncope and collapse (principal); R07.89 Other chest pain; R00.1 Bradycardia, unspecified; I25.10 Atherosclerotic heart disease of native coronary artery without angina pectoris; I10 Essential (primary) hypertension; E11.9 Type 2 diabetes mellitus without complications; E78.5 Hyperlipidemia, unspecified; Z95.5 Presence of coronary angioplasty implant and graft; Z86.16 Personal history of COVID-19; Z87.891 Personal history of nicotine dependence; Z79.85 Long-term (current) use of injectable non-insulin antidiabetic drugs; Z79.84 Long term (current) use of oral hypoglycemic drugs; I44.0 Atrioventricular block, first degree; I45.10 Unspecified right bundle-branch block; R94.31 Abnormal electrocardiogram [ECG] [EKG]
CPT/HCPCS: 36415; 71046; 71275; 74174; 80053; 83690; 84484; 85025; 85610; 85730; 93005; 96360; 99284; A9270; J7120; Q9967

== ENCOUNTER 2024-07-21 13:46 | Outpatient (CLI) | payer MEDICARE, SELFPAY ==
--- NOTE | ~2024-07-21 | XR_ITS ---
Right Shoulder Technique: AP and axillary views were obtained. Clinical History: Pain Findings: No fracture or dislocation is seen. Osseous alignment is anatomic. The glenohumeral and acr omioclavicular joint spaces are preserved. Soft tissues are unremarkable. Impression: Unremarkable right shoulder radiographs. Reviewed, dictated and finalized at [facility]. Impression: Unremarkable right shoulder radiographs.
--- OUTSIDE RECORDS SUMMARY | 2024-07-21 14:05 | XMS_ITS | Clinical Summary ---
Author Organization [facility] Address [address] [facility] [address] [place] [address] Phone Care Team Providers Care Crm Marketing Manager Name Role Phone Malcolm Escalera MD Primary Care Provider [phone] Scar Storm DO Unavailable [phone] Allergies No known active allergies Medications Nitroglycerin (RECTIV) 0.4 % Ointment 1 Inch by Rectal route 2 times daily. 1 Tube 1 04/12/2015 Active rosuvastatin (CRESTOR) 40 MG Tablet Take 40 mg by mouth daily. Active clopidogrel (PLAVIX) 75 MG Tablet Take 75 mg by mouth daily. Active lisinopril (PRINIVIL, ZESTRIL) 10 MG Tablet Take 10 mg by mouth daily. Active ezetimibe (ZETIA) 5 MG Tablet Take 10 mg by mouth nightly. Active linagliptin (TRADJENTA) 5 MG Tablet Take 5 mg by mouth daily. Active aspirin 325 MG Tablet Take 325 mg by mouth daily. Active [place]-3 Fatty Acids (FISH OIL PEARLS) 300 MG Capsule Take by mouth daily. Active Coenzyme Q10 (CO Q 10 PO) Take by mouth daily. Active Multiple Vitamins-Mineral s (MULTIVITAMIN PO) Take by mouth daily. Active Social History Tobacco Use Types Packs/Day Years Used Date Smoking Tobacco: Never Assessed Sex and Gender Information Value Date Recorded Sex Assigned at Not on file Legal Sex Male 11:38 PM CDT Gender Identity Not on file Sexual Orientation Not on file Plan of Treatment Health Maintenance Due Date Last Done Comments Hepatitis C Virus (HCV) Screening 1960 TdaP Immunization 1959 Cologuard 2009 Immunochemical Fecal Occult Blood 2009 Pneumococcal Immunization (5 0+ years) (1 of 1 - PCV) 2009 Zoster Immunization (1 of 2) 2009 PSA Discussion 2014 Influenza Immunization (#1) 2023 SARS-COV-2 Immunization ( - season) 2023 Colonoscopy 05/31/2025 06/01/2015 Colorectal Cancer Screening 05/31/2025 Respiratory Syncytial Virus (RSV) Immunization (Adult) (1 - 1-dose 75+ series) 2034 06/01/2015 Hepatitis B Immunization Aged Out No longer eligible based on patient's age to complete this topic Meningococcal Immunization (ACWY) Aged Out No longer eligible based on patient's age to complete this topic Pneumococcal Immunization Combined Aged Out No longer eligible based on patient's age to complete this topic Rotavirus Immunization Aged Out No lo nger eligible based on patient's age to complete this topic Procedures Procedure Name Priority Date/Time Associated Diagnosis Comments COLONOSCOPY Routine 06/01/2015 from Last 3 Months or Most Recently Relevant to Health Maintenance Results * COLONOSCOPY (06/01/2015) Scar Storm DO PROCEDURE/MINOR SURGICAL ORDERA BLES Final Result from Last 3 Months or Most Recently Relevant to Health Maintenance Insurance Care Teams Crm Marketing Manager Relationship Specialty Start Date End Date Malcolm Escalera MD PCP - General Internal Medicine 06/01/15 Scar Storm DO Gastroenterology 06/01/15
--- OUTSIDE RECORDS SUMMARY | 2024-07-21 14:05 | XMS_ITS | Referral Summary ---
Author Organization [facility] al Address [address] [place] [address] Care Team Providers Care Tractor Operator Laser Leveling Name Role Phone Malcolm Escalera MD Primary Care Provider [phone] Allergies No known active allergies Medications rosuvastatin (CRESTOR) 40 mg tablet take 1 tablet by oral route every day 0 0 4 Active multivitamin tablet tablet take 1 tablet by oral route every day with food 0 0 4 Active GLYXAMBI 25-5 mg tablet TK 1 T PO QAM 1 8 Active aspirin 81 mg enteric coated tablet Take 1 tablet (81 mg total) by mouth daily Active ezetimibe (ZETIA) 10 mg tablet Take 0.5 tablet daily Active glimepiride (AMARYL) 2 mg tablet Take 1 tablet (2 mg total) by mouth daily with breakfast 2 Active Vascepa 1 gram capsule Take 2 capsules (2 g total) by mouth 2 (two) times a day 2 Active losartan (COZAAR) 50 mg tablet Take 1 tablet (50 mg total) by mouth daily 2 Active AndroGeL 20.25 mg/1.25 gram (1.62 %) gel in metered-dose pump Apply 2 Pump topically daily 2 Active coenzyme Q10 100 mg capsule 2 Active vitamin D3-folic acid 125 mcg (5,000 unit)-1 mg tablet 2 Active FreeStyle Pro 14 Day Sensor kit CHANGE SENSORS EVERY 14 DAYS DIRECTED 3 Active Ozempic 2 mg/dose (8 mg/3 mL) pen injector injection Inject 2 mg under the skin once a week 3 Active clopidogreL (PLAVIX) 75 mg tablet TAKE 1 TABLET BY MOUTH DAILY 90 tablet 3 4 Active Active Problems Problem Noted Date Diagnosed Date Knee pain 05/21/2016 Coronary arteriosclerosis in [place] artery 10/15 Overview (06/06/2016): Coronary arteriosclerosis in [place] artery Assessment & Plan (08/27/2023 11:07 AM CDT): Stable, without angina. I made no change in his excellent medical regimen today. I asked him to follow up with me annually, or sooner if needed. I again advised him to continue to diet and exercise regularly. Assessment & Plan (08/28/2022 10:33 AM CDT): Stable, without angina. I made no change in his excellent medical regimen today. I asked him to follow up with me annually, or sooner if needed. I again advised him to diet and exercise regularly to lose weight. Assessment & Plan (08/28/2021 11:38 AM CDT): Stable, without angina. I made no change in his excellent medical regimen today. I asked him to follow up with me annually, or sooner if needed. I again advised him to diet and exercise regularly to lose weight. Assessment & Plan (08/29/2020 11:02 AM CDT): Stable, without angina. I made no change in his excellent medical regimen today, except to decrease aspirin to 81 mg daily. I asked him to follow up with me annually, or sooner if needed. I again advised him to diet and exercise regularly to lose weight. Assessment & Plan (08/31/2019 11:35 AM CDT): Stable, without angina. I made no change in his excellent medical regimen today. I asked him to follow up with me annually, or sooner if needed. I again advised him to diet and exercise regularly. Assessment & Plan (05/28/2018 12:10 PM CDT): Stable, without angina. I made no change in his excellent medical regimen today. I asked him to follow up with me annually, or sooner if needed. I again advised him to diet and exercise regularly to lose weight. Assessment & Plan (05/20/2017 11:33 AM CDT): Stable, without angina. I made no change in his excellent medical regimen today. I asked him to follow up with me annually, or sooner if needed. I again strongly advised him to diet and exercise to lose weight. Pure hypercholesterolemia 10/15/2013 Overview (06/06/2016): Pure hypercholesterolemia Assessment & Plan (08/27/2023 11:08 AM CDT): Well controlled. Continue high-intensity statin therapy plus Zetia. Assessment & Plan (08/28/2022 10:33 AM CDT): Well controlled. Continue high-intensity statin therapy plus Zetia. Assessment & Plan (08/28/2021 11:39 AM CDT): Lipids are well controlled. Continue high-intensity statin therapy plus Zetia. Assessment & Plan (08/29/2020 11:01 AM CDT): Lipids are well controlled. Continue high-intensity statin therapy. Assessment & Plan (08/31/2019 11:35 AM CDT): Lipids are well controlled. Continue high-intensity statin therapy. Assessment & Plan (05/28/2018 12:10 PM CDT): Lipids are very well controlled. Continue high-intensity statin therapy. Assessment & Plan (05/20/2017 11:34 AM CDT): Lipids are well controlled. Continue high-intensity statin therapy. Benign essential hypertension 10/15/2013 Overview (06/06/2016): Benign essential hypertension Assessment & Plan (08/27/2023 11:07 AM CDT): Well controlled. Continue same therapy. Continue diet and exercise. Assessment & Plan (08/28/2022 10:33 AM CDT): Well controlled. Continue same therapy. Continue diet and exercise. Assessment & Plan (08/28/2021 11:38 AM CDT): Blood pressure is well controlled. Continue same therapy. Continue diet and exercise. Assessment & Plan (08/29/2020 11:01 AM CDT): Blood pressure is excellent. Continue same therapy. Continue diet and exercise. Assessment & Plan (08/31/2019 11:35 AM CDT): Blood pressure is well controlled. Continue same therapy. Continue diet and exercise. Assessment & Plan (05/28/2018 12:10 PM CDT): Blood pressure is well controlled in general. Continue same therapy. Continue diet and exercise. Assessment & Plan (05/20/2017 11:33 AM CDT): Blood pressure is very well controlled. Continue same therapy. Continue diet and exercise. Immunizations Immunization Administration Dates Next Due Flucelvax Influenza Quad 03/11/2019 Influenza, Quadrivalent, Spl it, Preservative Free, Intramuscular 11/19/2019,12/31/2017,12/30/2017 Influenza, Trivalent, IM (MDV) 11/23/2012 Social History Tobacco Use Types Packs/Day Years Used Date Smoking Tobacco: Former Cigarettes 1.5 24 0 03/03/1977 - 03/03/2001 Smokeless Tobacco: Never Tobacco Cessation:Counseling Given: Not Answered Alcohol Use Standard Drinks/Week Comments Yes 0 (1 standard drink = 0.6 oz pur e alcohol) Personal Safety Answer Date Recorded Getting School Help Needed Not on file 04/11 Sex and Gender Information Value Date Recorded Sex Assigned at Not on file 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 [employer] Gender Identity Not on file Sexual Orientation Not on file Last Filed Vital Signs Vital Sign Reading Time Taken Comments Blood Pressure 119/66 08/27/2023 10:56 AM CDT Pulse 44 08/27/2023 10:56 AM CDT Temperature - - Respiratory Rate - - Oxygen Saturation 97% 08/28/2021 11:26 AM CDT Inhaled Oxygen Concentration - - Weight 129.3 kg (285 lb) 08/27/2023 10:56 AM CDT Height 182.9 cm (6') 08/27/2023 10:56 AM CDT Body Mass Index 38.65 08/27/2023 10:56 AM CDT Plan of Treatment Not on file [place] Care Teams Tractor Operator Laser Leveling Relationship Specialty Start Date End Date Malcolm Escalera MD [id number] [facility] [address] [facility] [address] [place] [id number] PCP - General 05/31/16
--- OUTSIDE RECORDS SUMMARY | 2024-07-21 14:05 | XMS_ITS | Clinical Summary ---
Author Organization [facility] Address [address] [place] [address] Care Team Providers Care [employer] Hand Name Role Phone Malcolm Escalera MD Primary Care Provider [phone] Source Comments [facility],non-owned Affiliates and Associated Physician Practices is amultiple site organization consisting of ambulatory clinics and hospital sitesin [place], [place], [place] and [place]. This disclosure is being madepursuant to the Care Everywhere program and may not contain all information available regarding this patient. Last updated 17.[facility] Allergies No known active allergies Medications * Be aware that medications may not be up to date on this document. Alwaysverify current medications with the patient. linagliptin (TRADJENTA) 5 MG tablet Take 5 mg by mouth once daily Active clopidogrel (PLAVIX) 75 MG tablet Take 75 mg by mouth once daily Active lisinopril (PRINIVIL; ZESTRIL) 10 MG tablet Take 10 mg by mouth once daily Active rosuvastatin (CRESTOR) 40 MG tablet Take 40 mg by mouth once daily Active ezetimibe (ZETIA) 10 MG tablet Take 10 mg by mouth once daily Active aspirin (ASPIRIN) 325 MG tablet Take 325 mg by mouth once daily Active OtherIndication s:nuerocell-2 daily Please clarify the name of this medicine. Reasons: nuerocell-2 daily Please clarify the name of this medicine. Active multivitamin daily (THERAGRAN) tablet Take 1 Tab by mouth daily with food Active [place]-3 Fatty Acids (FISH OIL) 500 MG capsule Take 1,000 mg by mouth once daily Active Coenzyme Q10 (CO Q 10 PO) Take by mouth once daily Active Active Problems No known active problems Family History Medical History Relation Name Comments Breast Cancer after age 50 or unknown Other CAD (Coronary Artery Disease) Other Diabetes Other Relation Name Status Comments Other Social History Tobacco Use Types Packs/Day Years Used Date Smoking Tobacco: Former Cigarettes Q uit: 10/30/2005 Alcohol Use Standard Drinks/Week Comments Not Asked 0 (1 standard drink = 0.6 oz pur e alcohol) Sex and Gender Information Value Date Recorded Sex Assigned at Not on file Legal Sex Male 5:57 AM [employer] Gender Identity Not on file Sexual Orientation Not on file Last Filed Vital Signs Vital Sign Reading Time Taken Comments Blood Pressure 160/88 10/31/2015 9:35 AM CDT Pulse 48 10/31/2015 9:35 AM CDT Temperature - - Respiratory Rate - - Oxygen Saturation - - Inhaled Oxygen Concentration - - Weight 154.7 kg (341 lb) 10/31/2015 9:35 AM CDT Height 185.4 cm (6' 1 ) 10/31/2015 9:35 AM CDT Body Mass Index 44.99 10/31/2015 9:35 AM CDT Plan of Treatment Health Maintenance Due Date Last Done Comments COLOGUARD (AGES 45-75) - COL ON CA SCREENING 1959 COLON MONITORING 1959 COLONOSCOPY - COLON CA SCREENING 1959 CT COLONOGRAPHY - COLON CA SCREENING 1959 Colorectal Cancer Screening 1959 FIT - COLON CA SCREENING 1959 FLEX SIG - COLON CA SCREENING 1959 HIV SCREENING 1974 HEPATITIS C SCREENING 02/14/1977 DTAP/TDAP/TD VACCINES (1 - Tdap) 1978 PNEUMOCOCCAL VACCINE 50+ (1 of 1 - PCV) 2009 ZOSTER VACCINE (1 of 2) 2009 COVID-19 VACCINE ( - 2023-2 5 season) 2023 AAA SCREENING 02/20/2024 DEPRESSION SCREENING 03/03/2024 INFLUENZA VACCINE (Season Ended) 2024 Respiratory Syncytial Virus (RSV) Vaccine Pt: or over 60 yrs (1 - 1-dose 75+ series) 2034 HEPATITIS B VACCINE Aged Out No longe r eligible based on patient's age to complete this topic HIB VACCINE Aged Out No longer eligi ble based on patient's age to complete this topic HPV VACCINE Aged Out No longer eligi ble based on patient's age to complete this topic MENINGOCOCCAL (Group B) VACC INE SHARED DECISION-MAKING Aged Out No longer eligibl e based on patient's age to complete this topic MENINGOCOCCAL GROUPS A/C/Y/W VACCINE Aged Out No longer eligible b ased on patient's age to complete this topic Insurance ANTHEM Care Teams [employer] Hand Relationship Specialty Start Date End Date Malcolm Escalera MD [address] [place] [address] PCP - General Internal Medicine 08/29/15
--- OUTSIDE RECORDS SUMMARY | 2024-07-21 14:05 | XMS_ITS | Clinical Summary ---
Author Organization [facility] Address [address] [place] [address] Care Team Providers Care [employer] Demonstrator Name Role Phone Malcolm Escalera MD Primary Care Provider [phone] Allergies No known active allergies Medications rosuvastatin [...] Date Knee pain 05/21/2016 Coronary arteriosclerosis in [place] artery 10/15 Overview (06/06/2016): Coronary arteriosclerosis in [place] artery Assessment & Plan (08/27/2023 11:07 AM [...] Intramuscular 11/19/2019,12/31/2017,12/30/2017 Influenza, Trivalent, IM (MDV) 11/23/2012 Surgical History Surgery Date Site/Laterality Comments SPINE SURGERY Medical History Medical History Date Comments Cataract 08/20 Diabetes mellitus (HCC) Heart disease Hypertension Family History Medical History Relation Name Comments Arthritis Father Mauricio Morocho Early Father Mauricio Morocho Cancer Mother Aleida Morocho Diabetes Mother Aleida Morocho Relation Name Status Comments Father Mauricio Morocho Mother Aleida Morocho Social History Tobacco Use Types Packs/Day Years [...] on file Legal 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 Gender Identity Not on file Sexual Orientation Not on file Obstetrics History Last Filed Vital Signs Vital Sign Reading [...] 08/27/2023 10:56 AM CDT Plan of Treatment Health Maintenance Due Date Last Done Comments Colon Cancer Screening-Colonoscopy 1959 Depression Screening 1959 Fall Risk Assessment 1959 Hepatitis C Screening 1959 Prostate Cancer Screening-PSA 1959 DTaP/Tdap/Td Vaccine (1 - Tdap) 1970 Hepatitis B Screening 1977 Pneumococcal vaccine 65+ (1 of 1 - PCV) 2009 Zoster Vaccine (1 of 2) 2009 Covid-19 Vaccine (3 - 2023-2 5 season) 2023 05/02/2020, 03/23/2020 Abdominal Aortic Aneurysm (A AA) Screen 02/20/2024 Well Visit 65+ 02/20/2024 Influenza Vaccine (Season Ended) 2024 11/19/2019, 03/11/2019, 12/31/2017, Additional history exists [place] Care Teams [employer] Dem[employer]ator Relationship Specialty Start Date End Date Malcolm Escalera MD [address] [facility] [address] [place] [address] PCP - General 05/31/16
== END 2024-07-21 13:47 | disposition home or self-care (01) ==
PROVIDERS: PCP Internal Medicine; Visit Provider Internal Medicine
DX: M25.511 Pain in right shoulder (principal); W19.XXXA Unspecified fall, initial encounter
CPT/HCPCS: 73030

== ENCOUNTER 2024-09-17 11:07 | Outpatient (CLI) | payer MEDICARE, SELFPAY ==
--- NOTE | ~2024-09-17 | XR_ITS ---
XR sternum min 2V 09/17/2024 11:52 Indication: Localized swelling. Procedure: 2 views of the sternum Comparison: 09/18/2023 Findings: No fracture, subluxation or dislocation. No discrete radiopaque mass identified. There is t horacic spondylosis. Impression: 1: No acute abnormality of the sternum. Reviewed, dictated and finalized at location A. Impression: 1: No acute abnormality of the sternum.
== END 2024-09-17 11:08 | disposition home or self-care (01) ==
LOC: MICIMG 11:09
PROVIDERS: PCP Internal Medicine; Visit Provider Internal Medicine
DX: R22.2 Localized swelling, mass and lump, trunk (principal); M89.8X8 Other specified disorders of bone, other site
CPT/HCPCS: 71120